=== PATIENT | female | born 1960 | race Caucasian/White ===

== ENCOUNTER 2017-10-27 15:36 | Emergency (ER) | payer OTHER, MEDICARE ==
[~2017-10-27] VITALS: Ht 165.1 cm; Wt 115.7 kg
[~2017-10-27 15:36] MED LIST: AMIODARONE HCL100 MG PO; APAP500 PO; ASPIR 8181 MG PO; CO Q-10100 MG PO; COREG6.25 MG PO; CYCLOBENZAPRINE5 MG PO; LASIX 20 MG TAB20 MG PO; LEVOTHYROXINE 0.15MG PO; LIPITOR 20 MG T20 M1 PO; PRADAXA150 MG PO; ULTRAM 50MG TAB50 MG PO; ZOLOFT25 MG PO
[2017-10-27] MEDS ORDERED: LYRICA 50 MG50 MG PO (15:54)
[2017-10-27] MEDS ORDERED: LISINOPRIL5 MG PO (15:54)
[2017-10-27] MEDS ORDERED: KEFLEX500 M1 PO (16:54)
[2017-10-27 17:11] VITALS: BP 112/56
[2018-02-04] MEDS ORDERED: NORCO 5-325 TA1 EACH PO (15:05)
== END 2017-10-27 17:12 | disposition home or self-care (01) ==
LOC: M.ERS 15:36
DX: S81.811A Laceration without foreign body, right lower leg, initial encounter (principal); I10 Essential (primary) hypertension; I25.10 Atherosclerotic heart disease of native coronary artery without angina pectoris; E03.9 Hypothyroidism, unspecified; Z90.49 Acquired absence of other specified parts of digestive tract; Z88.8 Allergy status to other drugs, medicaments and biological substances; W26.8XXA Contact with other sharp object(s), not elsewhere classified, initial encounter; Y93.89 Activity, other specified; Y92.89 Other specified places as the place of occurrence of the external cause; Y99.8 Other external cause status

== ENCOUNTER → 2018-02-04 | Outpatient (CLI) | payer OTHER, MEDICARE ==
[~2018-02-04] MED LIST changes: +KEFLEX500 M1 PO; +LISINOPRIL5 MG PO; +LYRICA 50 MG50 MG PO; +NORCO 5-325 TA1 EACH PO
== END ==
LOC: M.LAB 03:02
DX: Z01.812 Encounter for preprocedural laboratory examination (principal)

== ENCOUNTER → 2018-02-10 | Day surgery (SDC) | payer OTHER, MEDICARE ==
--- NOTE | ~2018-02-10 | OP ---
[address] [address] OPERATIVE REPORT Name: ABEL,LUARO Reji Room: [facility]#: [id number] Admission: 02/10/18 Attend Phys: Jonas Jimenez II Discharge: Date of : 62 Report #: [id number] THIS REPORT FOR: //name// CC: Doyle Jimenez DATE OF SERVICE: 02/10/2018 PREOPERATIVE DIAGNOSIS: Left knee medial meniscus tear. POSTOPERATIVE DIAGNOSIS: 1. Left knee medial meniscus tear. 2. Lateral meniscus tear. 3. Grade 3 chondromalacia of patellofemoral groove. 4. 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 PROCEDURES PERFORMED: 1. Left knee arthroscopic surgery with partial medial and lateral meniscectomy. 2. Abrasion chondroplasty, patellofemoral groove down to bleeding bone. 3. Abrasion chondroplasty of lateral tibia down to bleeding bone. SURGEON: Jonas Jimenez II, DO [employer]W OPERATOR: KLAUDIA Franklin ANESTHESIA: Per operative record. ESTIMATED BLOOD LOSS: Minimal. ANTIBIOTICS: Per operative record. DRAINS: None. COMPLICATIONS: None. CONDITION OF THE PATIENT: Stable to recovery room. DESCRIPTION OF PROCEDURE: The patient was taken to the operative suite and placed supine on the operating table and given appropriate anesthesia. The patient's back and lower extremity was sterilely prepped and draped with well-padded knee arthroscopic chance. Surgery began by midline portal incision. The arthroscope was advanced in the joint. There was found to be a posterior horn meniscus tear, which was debrided utilizing basket and shaver back to good stable margins. There was also noted to be a posterior horn lateral meniscus tear, which was debrided back to good stable margins. ACL and PCL appeared [address] [address] OPERATIVE REPORT Name: LAURO ROMAN Room: [facility]#: [id number] Admission: 02/10/18 Attend Phys: Jonas Jimenez II Discharge: Date of : 62 Report #: [id number] intact. There was found to be chondromalacia of the patellofemoral groove major and grade 3 with loose fibrillated cartilage. Utilizing shaver, this was debrided down to bleeding bone and then smoothed utilizing the Coblation wand in appropriate fashion. Lateral tibia also had grade 3 chondromalacia and this was smoothed utilizing the Coblation wand in appropriate fashion down to bleeding bone. The meniscus was also smoothed using Coblation wand in appropriate fashion. Final images were taken. The knee was then drained of arthroscopic fluid, closed with 4-0 nylon in simple fashion. Dermabond and sterile dressing was applied. The patient transported to recovery in stable condition. Counts were correct throughout the procedure. By: [id number] Jimenez II, DO /nt
[2018-02-10 10:42] LABS: HEMATOCRIT 39.6 % (37.0-47.0); HEMOGLOBIN 13.1 gm/dL (12.0-15.0); MCH 31.1 pg (26.0-34.0); MCHC 33.1 g/dL (28.0-37.0); MPV 8.3 fl. (7.2-11.1); RBC 4.21 mil/uL (4.20-5.00); RDW-CV 16.1 % (10.5-14.5); WBC 5.3 thou/uL (4.0-11.0)
[2018-02-10 10:53] LABS: CALCIUM 9.1 mg/dL (8.5-10.1); CREATININE 0.8 mg/dL (0.6-1.3)
[2018-02-10 10:58] LABS: ALBUMIN 3.2 g/dL (3.4-5.0); TOTAL BILIRUBIN 0.4 mg/dL (<0.1-1.0); TOTAL PROTEIN 7.4 g/dL (6.4-8.2)
== END | disposition home or self-care (01) ==
LOC: M.SUR 06:42
PROVIDERS: Orthopaedic Surgery
DX: S83.242A Other tear of medial meniscus, current injury, left knee, initial encounter (principal); S83.282A Other tear of lateral meniscus, current injury, left knee, initial encounter; M94.262 Chondromalacia, left knee; M25.462 Effusion, left knee; M25.562 Pain in left knee; I11.9 Hypertensive heart disease without heart failure; E78.00 Pure hypercholesterolemia, unspecified; I48.91 Unspecified atrial fibrillation; M81.0 Age-related osteoporosis without current pathological fracture; G47.33 Obstructive sleep apnea (adult) (pediatric); E07.9 Disorder of thyroid, unspecified; Z87.19 Personal history of other diseases of the digestive system; Z98.890 Other specified postprocedural states; Z82.49 Family history of ischemic heart disease and other diseases of the circulatory system; Z79.899 Other long term (current) drug therapy; Z79.82 Long term (current) use of aspirin; Z88.8 Allergy status to other drugs, medicaments and biological substances; X58.XXXA Exposure to other specified factors, initial encounter; Y93.89 Activity, other specified; Y92.89 Other specified places as the place of occurrence of the external cause; Y99.8 Other external cause status